=== PATIENT | female | born 1955 | race Caucasian/White ===

== ENCOUNTER 2016-07-09 16:11 | Emergency (ER) | payer MEDICARE, MEDICAID ==
[~2016-07-09] VITALS: Ht 152.4 cm; Wt 53.1 kg
[2016-07-09 16:42] VITALS: BP 112/71
== END 2016-07-09 17:31 | disposition home or self-care (01) ==
LOC: ER 16:20
DX: H00.036 Abscess of eyelid left eye, unspecified eyelid (principal); G35 Multiple sclerosis; Z88.1 Allergy status to other antibiotic agents
CPT/HCPCS: A4606; Z7610

== ENCOUNTER 2017-02-14 14:36 | Emergency (ER) | payer MEDICARE, MEDICAID ==
[~2017-02-14] VITALS: Ht 154.9 cm; Wt 49.9 kg
[2017-02-14 14:42] VITALS: BP 128/63
== END 2017-02-14 15:07 | disposition home or self-care (01) ==
LOC: ER 14:38
DX: S80.862A Insect bite (nonvenomous), left lower leg, initial encounter (principal); S80.861A Insect bite (nonvenomous), right lower leg, initial encounter; G35 Multiple sclerosis; Z88.1 Allergy status to other antibiotic agents; W57.XXXA Bitten or stung by nonvenomous insect and other nonvenomous arthropods, initial encounter; Y92.89 Other specified places as the place of occurrence of the external cause; Y93.89 Activity, other specified; Y99.8 Other external cause status
CPT/HCPCS: A4606; Z7610

== ENCOUNTER 2017-02-19 15:29 | Emergency (ER) | payer MEDICARE, MEDICAID ==
[~2017-02-19] VITALS: Ht 154.9 cm; Wt 49.9 kg
[2017-02-19 15:29] VITALS: BP 135/61
== END 2017-02-19 16:47 | disposition home or self-care (01) ==
LOC: ER 15:30
DX: L30.9 Dermatitis, unspecified (principal); G35 Multiple sclerosis; Z88.1 Allergy status to other antibiotic agents
CPT/HCPCS: 99283; A4606; Z7610

== ENCOUNTER 2017-05-04 16:05 | Emergency (ER) | payer MEDICARE, MEDICAID ==
[~2017-05-04] VITALS: Ht 154.9 cm; Wt 49.9 kg
--- NOTE | 2017-05-04 16:15 | NUR ---
PT AMBULATORY TO ER BED 05. WAS SENT BY PMD TO R/O UTI. C/O HEAVY SENSATION IN THE BLADDER, DISCOMFORT. NO OTHER COMPLAINTS. GOWNED AND PLACED ON MONITOR. NAD NOTED. AWAITING MD HERNANDEZ.
--- NOTE | 2017-05-04 16:48 | NUR ---
DR COYLE AT BEDSIDE FOR EVAL.
[2017-05-04 16:56] LABS: APPEARANCE,URINE Clear (CLEAR); BILIRUBIN,URINE Negative (NEGATIVE); BLOOD, URINE Trace-lysed Ery/uL (NEGATIVE); COLOR,URINE Yellow (YELLOW); KETONES,URINE Negative (NEGATIVE); LEUKOCYTE ESTERASE ,URINE Moderate (NEGATIVE); NITRITE, URINE Negative (NEGATIVE); PROTEIN,URINE Negative (NEGATIVE); UGLUCOSE Negative (NEGATIVE); UROBILINOGEN,URINE 0.2 EU/dL (0.2)
[2017-05-04 17:11] LABS: BACTERIA,URINE Few /HPF (None Seen); RBC,URINE 0-2 /HPF (0-2); SQUAMOUS EPITHELIAL CELL,UR Rare /HPF (None Seen)
[2017-05-04 17:55] VITALS: BP 129/87
--- NOTE | 2017-05-04 17:55 | NUR ---
Patient discharged to home in stable condition. Written and verbal after care instructions given. Patient verbalizes understanding of instruction.
--- NOTE | 2017-05-04 17:56 | NUR ---
REPORT GIVEN TO PAULINA FOR CONTINUITY OF CARE IN [facility]
== END 2017-05-04 17:56 | disposition home or self-care (01) ==
LOC: ER 16:08
DX: N39.0 Urinary tract infection, site not specified (principal); G35 Multiple sclerosis; Z88.1 Allergy status to other antibiotic agents
CPT/HCPCS: 81001; 87077; 87086; 87186; 99284; A4606; 81000-TC; Z7610

== ENCOUNTER 2018-12-11 11:08 | Emergency (ER) | payer MEDICARE, MEDICAID ==
[~2018-12-11] VITALS: Ht 152.4 cm; Wt 49.9 kg
--- NOTE | 2018-12-11 11:20 | NUR ---
[id number] FRM HOME C/O N/V SINCE LAST NIGHT. STATES SHE'S HAD ABOUT 10 EPISODES OF VOMIT TODAY. DENIES PAIN AT THIS TIME. ALSO STATES SHE HAS REGULAR CONSTIPATION, WHICH SHE RECEIVES ENEMAS FOR, RELATED TO HER MS. PT IS AOX4, HYPERTENSIVE, RR EVEN AND UNLABORED ON RA. NO ACUTE DISTRESS NOTED. AWAITING MD HERNANDEZ.
--- NOTE | 2018-12-11 11:50 | NUR ---
DR CORTEZ AT BEDSIDE FOR EVAL.
[2018-12-11] MEDS ORDERED: FAMOTIDINE/PF INJ 20 MG/2 ML VIAL IV ONE ×2 (12:00→12:14)
[2018-12-11] MEDS ORDERED: IV NS 0.9% 1,000 ML BAG IV ONE (12:00)
[2018-12-11] MEDS ORDERED: ONDANSETRON HCL/PF 4 MG/2 ML VIAL IVP ONE (12:00)
[2018-12-11 12:09] LABS: BASOPHILS % (AUTO) 0.3 % (0.0-2.0); EOSINOPHILS % (AUTO) 1.1 % (0.0-6.0); HEMATOCRIT 38 % (33-45); HEMOGLOBIN 12.9 g/dL (11.5-14.8); LYMPHOCYTES % (AUTO) 15.5 % (20.0-44.0); MEAN CORPUSCULAR HGB CONC 34 g/dl (31.0-36.0); MEAN CORPUSCULAR VOLUME 105 fL (82-100); MONOCYTES # (AUTO) 0.3 /CMM (0.1-1.30); MONOCYTES % (AUTO) 5.1 % (2.0-12.0); NEUTROPHILS # (AUTO) 5.2 /CMM (1.8-8.9); PLATELET COUNT (AUTO) 338 /CMM (150-450); RED BLOOD CELL COUNT(AUTO) 3.59 MIL/uL (4.0-5.2); WHITE BLOOD COUNT (AUTO) 6.7 K/uL (4.3-11.0)
[2018-12-11] MEDS ORDERED: ONDANSETRON HCL/PF 4 MG/2 ML VIAL ONE (12:14)
[2018-12-11 12:15] LABS: CALCIUM, SERUM 8.5 mg/dL (8.5-10.1); CREATININE 0.5 mg/dL (0.6-1.3); POTASSIUM 4.6 mmol/L (3.5-5.1)
--- NOTE | 2018-12-11 12:15 | NUR ---
[employer] AT BEDSIDE
[2018-12-11 12:33] LABS: ALBUMIN 3.8 g/dL (3.4-5.0); BILIRUBIN,DIRECT 0.1 mg/dL (0.0-0.2); BILIRUBIN,TOTAL 0.3 mg/dL (0.2-1.0); TOTAL PROTEIN, SERUM 7.6 g/dL (6.4-8.2)
--- NOTE | 2018-12-11 13:16 | NUR ---
Patient is resting comfortably in bed with eyes closed. Easily aroused. VSS
--- NOTE | 2018-12-11 14:13 | NUR ---
IV removed. Catheter intact and site benign. Pressure and 4x4 applied to site. No bleeding noted.Patient discharged to home in stable condition. Written and verbal after care instructions given. Patient verbalizes understanding of instruction.
[2018-12-11 14:14] VITALS: BP 181/85
== END 2018-12-11 14:14 | disposition home or self-care (01) ==
LOC: ER 11:10
DX: R10.13 Epigastric pain (principal); R11.2 Nausea with vomiting, unspecified; G35 Multiple sclerosis; F10.10 Alcohol abuse, uncomplicated; Y90.9 Presence of alcohol in blood, level not specified; Z88.1 Allergy status to other antibiotic agents
CPT/HCPCS: 36415; 71045; 76700; 80048; 80076; 83690; 84484; 85025; 96361; 96374; 96375; 99284; J2405; J3490; J7030

== ENCOUNTER 2019-01-17 12:43 | Emergency (ER) | payer MEDICARE, MEDICAID ==
[~2019-01-17] VITALS: Ht 154.9 cm; Wt 49.0 kg
[2019-01-17 13:17] VITALS: BP 139/97
--- NOTE | 2019-01-17 14:01 | NUR ---
Patient discharged to home in stable condition. Written and verbal after care instructions given. Patient verbalizes understanding of instruction.
== END 2019-01-17 14:02 | disposition home or self-care (01) ==
LOC: ER 12:45
DX: H57.89 Other specified disorders of eye and adnexa (principal); G35 Multiple sclerosis; Z88.1 Allergy status to other antibiotic agents

== ENCOUNTER 2019-01-26 14:59 | Emergency (ER) | payer MEDICARE, MEDICAID ==
[~2019-01-26] VITALS: Ht 154.9 cm; Wt 47.6 kg
[2019-01-26 15:21] LABS: APPEARANCE,URINE Slightly Cloudy (CLEAR); BILIRUBIN,URINE Negative (NEGATIVE); BLOOD, URINE Negative Ery/uL (NEGATIVE); COLOR,URINE Light yellow (YELLOW); KETONES,URINE Negative (NEGATIVE); LEUKOCYTE ESTERASE ,URINE Small (NEGATIVE); NITRITE, URINE Negative (NEGATIVE); PH,URINE 7.5 (5.0-8.0); PROTEIN,URINE Negative (NEGATIVE); UGLUCOSE Negative (NEGATIVE); UROBILINOGEN,URINE 0.2 EU/dL (0.2)
[2019-01-26 15:25] LABS: BACTERIA,URINE Few /HPF (None Seen); RBC,URINE 0-3 /HPF (0-2); SQUAMOUS EPITHELIAL CELL,UR Moderate /HPF (None Seen); WBC,URINE 20-50 /HPF (0-3)
[2019-01-26 15:37] LABS: BASOPHILS % (AUTO) 0.5 % (0.0-2.0); EOSINOPHILS % (AUTO) 2.8 % (0.0-6.0); HEMATOCRIT 35 % (33-45); HEMOGLOBIN 12.1 g/dL (11.5-14.8); LYMPHOCYTES # (AUTO) 2.1 /CMM (0.8-4.8); LYMPHOCYTES % (AUTO) 30.4 % (20.0-44.0); MEAN CORPUSCULAR HGB CONC 35 g/dl (31.0-36.0); MEAN CORPUSCULAR VOLUME 103 fL (82-100); MONOCYTES # (AUTO) 0.4 /CMM (0.1-1.30); MONOCYTES % (AUTO) 5.3 % (2.0-12.0); NEUTROPHILS # (AUTO) 4.2 /CMM (1.8-8.9); PLATELET COUNT (AUTO) 323 /CMM (150-450); WHITE BLOOD COUNT (AUTO) 6.9 K/uL (4.3-11.0)
[2019-01-26 15:47] LABS: CALCIUM, SERUM 8.9 mg/dL (8.5-10.1); CREATININE 0.6 mg/dL (0.6-1.3); POTASSIUM 3.5 mmol/L (3.5-5.1)
[2019-01-26 15:58] LABS: ALBUMIN 4.1 g/dL (3.4-5.0); BILIRUBIN,DIRECT 0.1 mg/dL (0.0-0.2); BILIRUBIN,TOTAL 0.2 mg/dL (0.2-1.0); TOTAL PROTEIN, SERUM 7.7 g/dL (6.4-8.2)
[2019-01-26 16:16] LABS: EOSINOPHILS % (MANUAL) 4 % (0-4); LYMPHOCYTES % (MANUAL) 31 % (16-48); MONOCYTES % (MANUAL) 2 % (0-11.0); NEUTROPHILS % (MANUAL) 63 (42-76)
[2019-01-26 16:25] VITALS: BP 133/70
== END 2019-01-26 16:26 | disposition home or self-care (01) ==
LOC: ER 15:02
DX: N39.0 Urinary tract infection, site not specified (principal); G35 Multiple sclerosis; Z88.1 Allergy status to other antibiotic agents
CPT/HCPCS: 36415; 76705-TC; 80048-TC; 80076-TC; 81000-TC; 83690-TC; 85025-TC; 87086-TC

== ENCOUNTER 2019-10-20 16:35 | Emergency (ER) | payer MEDICARE, OTHER ==
[~2019-10-20] VITALS: Ht 154.9 cm; Wt 68.0 kg
--- NOTE | 2019-10-20 16:39 | NUR ---
CALLED TO TRIAGE,PATIENT IN RESTROOM
--- NOTE | 2019-10-20 17:00 | NUR ---
NAUSEA AND VOMITING SINCE LAST NIGHT ON MACROBID FOR UTI X 3 DAYS. PATIENT A/OX4. BREATHING EVEN AND UNLABORED, NO SOB NOTED, NEEDS ATTENDED, KEPT COMFORTABLE. WILL CONTINUE TO MONITOR.
[2019-10-20] MEDS ORDERED: ONDANSETRON HCL/PF 4 MG/2 ML VIAL ONE (17:26)
[2019-10-20] MEDS ORDERED: ONDANSETRON HCL/PF 4 MG/2 ML VIAL IVP ONE (17:30)
[2019-10-20] MEDS ORDERED: IV NS 0.9% 500 ML BAG IV ONE (17:30)
[2019-10-20] MEDS ORDERED: IV NS 0.9% 1,000 ML BAG IV ONE (17:30)
[2019-10-20 17:45] LABS: BASOPHILS % (AUTO) 0.4 % (0.0-2.0); EOSINOPHILS % (AUTO) 2.1 % (0.0-6.0); HEMATOCRIT 36 % (33-45); HEMOGLOBIN 12.2 g/dL (11.5-14.8); LYMPHOCYTES # (AUTO) 1.5 /CMM (0.8-4.8); LYMPHOCYTES % (AUTO) 19.5 % (20.0-44.0); MEAN CORPUSCULAR HGB CONC 34 g/dl (31.0-36.0); MEAN CORPUSCULAR VOLUME 103 fL (82-100); MONOCYTES # (AUTO) 0.4 /CMM (0.1-1.30); MONOCYTES % (AUTO) 5.9 % (2.0-12.0); NEUTROPHILS # (AUTO) 5.4 /CMM (1.8-8.9); NEUTROPHILS % (AUTO) 72.1 % (43.0-81.0); PLATELET COUNT (AUTO) 331 /CMM (150-450); WHITE BLOOD COUNT (AUTO) 7.5 K/uL (4.3-11.0)
[2019-10-20 17:59] LABS: ALBUMIN 4.4 g/dL (3.4-5.0); BILIRUBIN,DIRECT 0.1 mg/dL (0.0-0.2); BILIRUBIN,TOTAL 0.4 mg/dL (0.2-1.0); CALCIUM, SERUM 10.1 mg/dL (8.5-10.1); CREATININE 0.8 mg/dL (0.6-1.3); POTASSIUM 3.3 mmol/L (3.5-5.1); TOTAL PROTEIN, SERUM 8.1 g/dL (6.4-8.2)
[2019-10-20 18:54] LABS: APPEARANCE,URINE Clear (CLEAR); BILIRUBIN,URINE Negative (NEGATIVE); BLOOD, URINE Negative Ery/uL (NEGATIVE); COLOR,URINE Yellow (YELLOW); KETONES,URINE Trace (NEGATIVE); LEUKOCYTE ESTERASE ,URINE Trace (NEGATIVE); NITRITE, URINE Negative (NEGATIVE); PH,URINE 8.5 (5.0-8.0); PROTEIN,URINE Negative (NEGATIVE); UGLUCOSE Negative (NEGATIVE); UROBILINOGEN,URINE 0.2 EU/dL (0.2)
[2019-10-20] MEDS ORDERED: POTASSIUM CHLORIDE 20 MEQ TAB.PRT.SR PO ONE ×2 (19:00→19:18)
[2019-10-20 19:16] LABS: BACTERIA,URINE 1+ /HPF (None Seen); SQUAMOUS EPITHELIAL CELL,UR Few /HPF (None Seen)
--- NOTE | 2019-10-20 19:20 | NUR ---
Patient a/ox4, breathing even and unlabored, no sob noted, needs attended. Kept comfortable. IV removed. Catheter intact and site benign. Pressure and 4x4 applied to site. No bleeding noted.Patient discharged to home in stable condition. Written and verbal after care instructions given. Patient verbalizes understanding of instruction.
[2019-10-20 19:23] VITALS: BP 160/90
== END 2019-10-20 19:24 | disposition home or self-care (01) ==
LOC: ER 16:38
DX: R11.2 Nausea with vomiting, unspecified (principal); E86.0 Dehydration; E87.6 Hypokalemia; G35 Multiple sclerosis; Z88.8 Allergy status to other drugs, medicaments and biological substances
CPT/HCPCS: 36415; 80048; 80076; 81001; 83690; 85025; 87086; 96374; 99283; J2405; J7040; 81000-TC

== ENCOUNTER 2019-12-30 10:13 | Outpatient (CLI) | payer MEDICARE, OTHER ==
[2019-12-30 13:08] LABS: BASOPHILS % (AUTO) 0.4 % (0.0-2.0); HEMATOCRIT 34 % (33-45); HEMOGLOBIN 11.1 g/dL (11.5-14.8); LYMPHOCYTES # (AUTO) 1.5 /CMM (0.8-4.8); LYMPHOCYTES % (AUTO) 19.5 % (20.0-44.0); MEAN CORPUSCULAR HGB CONC 33 g/dl (31.0-36.0); MEAN CORPUSCULAR VOLUME 104 fL (82-100); MONOCYTES # (AUTO) 0.4 /CMM (0.1-1.30); MONOCYTES % (AUTO) 4.6 % (2.0-12.0); NEUTROPHILS # (AUTO) 5.5 /CMM (1.8-8.9); NEUTROPHILS % (AUTO) 71.5 % (43.0-81.0); PLATELET COUNT (AUTO) 426 /CMM (150-450); RED BLOOD CELL COUNT(AUTO) 3.21 MIL/uL (4.0-5.2); WHITE BLOOD COUNT (AUTO) 7.8 K/uL (4.3-11.0)
[2019-12-30 13:32] LABS: THYROID STIMULATING HORMONE 2.131 uIU/mL (0.358-3.74)
[2019-12-30 13:38] LABS: ALBUMIN 3.9 g/dL (3.4-5.0); BILIRUBIN,TOTAL 0.2 mg/dL (0.2-1.0); CALCIUM, SERUM 9.4 mg/dL (8.5-10.1); CREATININE 0.7 mg/dL (0.6-1.3); MAGNESIUM 2.3 mg/dL (1.8-2.4); PHOSPHORUS 5.1 mg/dL (2.5-4.9); POTASSIUM 4.4 mmol/L (3.5-5.1); TOTAL PROTEIN, SERUM 7.6 g/dL (6.4-8.2)
== END 2019-12-30 23:59 | disposition home or self-care (01) ==
LOC: MSC 10:13
PROVIDERS: ATTEND Internal Medicine
DX: R10.9 Unspecified abdominal pain (principal); M25.561 Pain in right knee; I10 Essential (primary) hypertension; G47.00 Insomnia, unspecified; F32.9 Major depressive disorder, single episode, unspecified; R23.2 Flushing; E87.6 Hypokalemia; J44.9 Chronic obstructive pulmonary disease, unspecified; R32 Unspecified urinary incontinence; G35 Multiple sclerosis; R53.83 Other fatigue; D64.9 Anemia, unspecified; E55.9 Vitamin D deficiency, unspecified; Z79.899 Other long term (current) drug therapy
CPT/HCPCS: 36415; 80053; 83735; 84100; 84443; 85025; G0463

== ENCOUNTER 2020-01-08 14:55 | Outpatient (CLI) | payer MEDICARE, OTHER | END 2020-01-08 23:59 | disposition home or self-care (01) | LOC: MSC 14:55 | PROVIDERS: ATTEND Internal Medicine | DX: M54.5 Low back pain (principal); R53.83 Other fatigue; R32 Unspecified urinary incontinence; G47.00 Insomnia, unspecified; F32.9 Major depressive disorder, single episode, unspecified; R23.2 Flushing; E87.6 Hypokalemia; J44.9 Chronic obstructive pulmonary disease, unspecified; D64.9 Anemia, unspecified; E55.9 Vitamin D deficiency, unspecified; G35 Multiple sclerosis; Z79.1 Long term (current) use of non-steroidal anti-inflammatories (NSAID); Z79.891 Long term (current) use of opiate analgesic; Z79.51 Long term (current) use of inhaled steroids; Z79.899 Other long term (current) drug therapy ==

== ENCOUNTER 2020-01-12 10:12 | Outpatient (CLI) | payer MEDICARE, OTHER | END 2020-01-12 23:59 | disposition home or self-care (01) | LOC: US 10:12 | PROVIDERS: ATTEND Internal Medicine | DX: M25.562 Pain in left knee (principal); R10.9 Unspecified abdominal pain | CPT/HCPCS: 73564-TC; 76700-TC ==

== ENCOUNTER 2020-02-01 13:02 | Outpatient (CLI) | payer MEDICARE, OTHER | END 2020-02-01 23:59 | disposition home or self-care (01) | LOC: MSC 13:02 | PROVIDERS: ATTEND Internal Medicine | DX: M54.5 Low back pain (principal); G47.00 Insomnia, unspecified; F32.9 Major depressive disorder, single episode, unspecified; R23.2 Flushing; J44.9 Chronic obstructive pulmonary disease, unspecified; R32 Unspecified urinary incontinence; G35 Multiple sclerosis; E55.9 Vitamin D deficiency, unspecified; Z79.899 Other long term (current) drug therapy ==

== ENCOUNTER 2020-02-05 17:56 | Emergency (ER) | payer MEDICARE, OTHER ==
[~2020-02-05] VITALS: Ht 152.4 cm; Wt 49.0 kg
[2020-02-05 18:04] VITALS: BP 139/72
[2020-02-05] MEDS ORDERED: FAMOTIDINE (20 MG) 20 MG TABLET PO ONE (18:30)
[2020-02-05] MEDS ORDERED: predniSONE 50 MG TABLET PO ONE (18:30)
[2020-02-05] MEDS ORDERED: diphenhydrAMINE HCL 25 MG CAPSULE PO ONE (18:30)
[2020-02-05] MEDS ORDERED: diphenhydrAMINE HCL 25 MG CAPSULE ONE (18:32)
[2020-02-05] MEDS ORDERED: FAMOTIDINE (20 MG) 20 MG TABLET ONE (18:32)
[2020-02-05] MEDS ORDERED: predniSONE 10 MG TABLET ONE (18:33)
[2020-02-05] MEDS ORDERED: predniSONE 20 MG TABLET ONE (18:33)
== END 2020-02-05 18:39 | disposition home or self-care (01) ==
LOC: ER 17:59
DX: L50.8 Other urticaria (principal); G35 Multiple sclerosis; Z88.1 Allergy status to other antibiotic agents
CPT/HCPCS: 99284; J7512 ×2; Q0163

== ENCOUNTER 2020-02-22 13:39 | Outpatient (CLI) | payer MEDICARE, MEDICAID | END 2020-02-22 23:59 | disposition home or self-care (01) | LOC: MSC 13:39 | PROVIDERS: ATTEND Internal Medicine | DX: L25.9 Unspecified contact dermatitis, unspecified cause (principal); M54.5 Low back pain; I10 Essential (primary) hypertension; J44.9 Chronic obstructive pulmonary disease, unspecified; G47.00 Insomnia, unspecified; N39.46 Mixed incontinence; F32.2 Major depressive disorder, single episode, severe without psychotic features; G35 Multiple sclerosis; E55.9 Vitamin D deficiency, unspecified; R53.83 Other fatigue; Z79.899 Other long term (current) drug therapy; Z79.1 Long term (current) use of non-steroidal anti-inflammatories (NSAID) ==

== ENCOUNTER 2020-03-08 23:26 | Emergency (ER) | payer MEDICARE, OTHER ==
[~2020-03-08] VITALS: Ht 152.4 cm; Wt 48.5 kg
[2020-03-08 23:48] LABS: BASOPHILS % (AUTO) 0.5 % (0.0-2.0); EOSINOPHILS % (AUTO) 1.7 % (0.0-6.0); HEMATOCRIT 33 % (33-45); HEMOGLOBIN 11.3 g/dL (11.5-14.8); LYMPHOCYTES # (AUTO) 1.7 /CMM (0.8-4.8); LYMPHOCYTES % (AUTO) 22.4 % (20.0-44.0); MEAN CORPUSCULAR HGB CONC 35 g/dl (31.0-36.0); MEAN CORPUSCULAR VOLUME 101 fL (82-100); MONOCYTES # (AUTO) 0.5 /CMM (0.1-1.30); MONOCYTES % (AUTO) 6.3 % (2.0-12.0); NEUTROPHILS # (AUTO) 5.2 /CMM (1.8-8.9); NEUTROPHILS % (AUTO) 69.1 % (43.0-81.0); PLATELET COUNT (AUTO) 306 /CMM (150-450); RED BLOOD CELL COUNT(AUTO) 3.25 MIL/uL (4.0-5.2); WHITE BLOOD COUNT (AUTO) 7.5 K/uL (4.3-11.0)
[2020-03-09 00:03] LABS: CREATININE 0.6 mg/dL (0.6-1.3); POTASSIUM 3.4 mmol/L (3.5-5.1)
[2020-03-09 00:15] LABS: ALBUMIN 3.8 g/dL (3.4-5.0); BILIRUBIN,DIRECT 0.1 mg/dL (0.0-0.2); BILIRUBIN,TOTAL 0.4 mg/dL (0.2-1.0); TOTAL PROTEIN, SERUM 7.3 g/dL (6.4-8.2)
[2020-03-09] MEDS ORDERED: MORPHINE SULFATE INJ 4 MG/ML DISP.SYRIN ONE (00:49)
[2020-03-09] MEDS ORDERED: ONDANSETRON HCL/PF 4 MG/2 ML VIAL ONE (00:49)
[2020-03-09] MEDS ORDERED: DIPH-530 PO (01:00)
[2020-03-09] MEDS ORDERED: ONDANSETRON HCL/PF - ER 4 MG/2 ML VIAL IV ONE (01:00)
[2020-03-09] MEDS ORDERED: MORPHINE SULFATE INJ 2 MG/ML DISP.SYRIN IV ONE (01:00)
--- NOTE | 2020-03-09 01:22 | NUR ---
DR MARTINEZ PAGED PER DR LOPEZ
--- NOTE | 2020-03-09 01:47 | NUR ---
lab called regarding negative covid result.
--- NOTE | 2020-03-09 02:14 | NUR ---
112-2 [facility] hospital bed
--- NOTE | 2020-03-09 02:27 | NUR ---
Patient does not wish to proceed with medical care recommended by Dr. Alva. Patient given information related to possible complications, up to and including , which could occur as a result of leaving the hospital at this time. Patient verbalizes understanding of risks involved due to leaving against medical advice. Patient has signed AMA form. IV removed. Catheter intact and site benign. Pressure and 4x4 applied to site. No bleeding noted. pt ambulated in steady gate and left the hospital.
[2020-03-09 02:34] VITALS: BP 172/79
== END 2020-03-09 02:35 | disposition left against medical advice (07) ==
LOC: ER 23:30 → UNDOADMIN 03-09 02:17 → TELE1 03-09 02:17
DX: R07.9 Chest pain, unspecified (principal); Z20.828 Contact with and (suspected) exposure to other viral communicable diseases; G35 Multiple sclerosis; Z88.1 Allergy status to other antibiotic agents; R94.31 Abnormal electrocardiogram [ECG] [EKG]
CPT/HCPCS: 36415; 71045; 80048; 80076; 83880; 84484; 85025; 85730; 87426; 93005; 96374; 96375; 99285; J2270; J2405; C9803

== ENCOUNTER 2020-05-22 16:45 | Emergency (ER) | payer MEDICARE, OTHER ==
[~2020-05-22] VITALS: Ht 154.9 cm; Wt 49.0 kg
[~2020-05-22 16:45] MED LIST: DIPH-530 PO
--- NOTE | 2020-05-22 17:10 | NUR ---
BIB SELF C/O VAGINAL BLEEDING WITH ABD PAIN X 2 DAYS -N/V/D. VS CHECKED. STABLE
--- NOTE | 2020-05-22 19:27 | NUR ---
us in process at bed side
[2020-05-22 19:44] LABS: BASOPHILS # (AUTO) 0.1 /CMM (0.0-0.2); BASOPHILS % (AUTO) 0.7 % (0.0-2.0); EOSINOPHILS % (AUTO) 2.5 % (0.0-6.0); HEMATOCRIT 37 % (33-45); LYMPHOCYTES # (AUTO) 1.7 /CMM (0.8-4.8); LYMPHOCYTES % (AUTO) 19.3 % (20.0-44.0); MEAN CORPUSCULAR HGB CONC 33 g/dl (31.0-36.0); MEAN CORPUSCULAR VOLUME 104 fL (82-100); MONOCYTES # (AUTO) 0.5 /CMM (0.1-1.30); MONOCYTES % (AUTO) 5.8 % (2.0-12.0); NEUTROPHILS # (AUTO) 6.2 /CMM (1.8-8.9); NEUTROPHILS % (AUTO) 71.7 % (43.0-81.0); PLATELET COUNT (AUTO) 310 /CMM (150-450); RED BLOOD CELL COUNT(AUTO) 3.51 MIL/uL (4.0-5.2); WHITE BLOOD COUNT (AUTO) 8.6 K/uL (4.3-11.0)
[2020-05-22 19:50] LABS: CREATININE 0.6 mg/dL (0.6-1.3); POTASSIUM 4.3 mmol/L (3.5-5.1)
[2020-05-22 20:00] LABS: ALBUMIN 3.9 g/dL (3.4-5.0); BILIRUBIN,DIRECT 0.1 mg/dL (0.0-0.2); BILIRUBIN,TOTAL 0.3 mg/dL (0.2-1.0); TOTAL PROTEIN, SERUM 7.8 g/dL (6.4-8.2)
[2020-05-22 20:03] LABS: BILIRUBIN,URINE NEGATIVE (NEGATIVE); BLOOD, URINE NEGATIVE Ery/uL (NEGATIVE); COLOR,URINE YELLOW (YELLOW); LEUKOCYTE ESTERASE ,URINE TRACE (NEGATIVE); NITRITE, URINE NEGATIVE (NEGATIVE); PROTEIN,URINE NEGATIVE (NEGATIVE); UGLUCOSE NEGATIVE (NEGATIVE); UROBILINOGEN,URINE 0.2 EU/dL (0.2)
[2020-05-22 20:16] LABS: BACTERIA,URINE Few /HPF (None Seen); RBC,URINE 0-2 /HPF (0-2); SQUAMOUS EPITHELIAL CELL,UR Rare /HPF (None Seen); WBC,URINE 0-2 /HPF (0-3)
[2020-05-22] MEDS ORDERED: IBUPROFEN 400 MG TABLET ONE (20:37)
[2020-05-22 20:44] VITALS: BP 125/72
[2020-05-22] MEDS ORDERED: IBUPROFEN 400 MG TABLET PO ONE (21:00)
== END 2020-05-22 20:44 | disposition home or self-care (01) ==
LOC: ER 16:48
DX: N93.9 Abnormal uterine and vaginal bleeding, unspecified (principal); G35 Multiple sclerosis; Z88.1 Allergy status to other antibiotic agents; Z88.8 Allergy status to other drugs, medicaments and biological substances
CPT/HCPCS: 36415; 76856; 80048; 80076; 81001; 83690; 85025; 99284; A6403

== ENCOUNTER 2020-07-25 12:52 | Outpatient (CLI) | payer MEDICARE, OTHER | END 2020-07-25 23:59 | disposition home or self-care (01) | LOC: MSC 12:52 | PROVIDERS: ATTEND Internal Medicine | DX: K59.00 Constipation, unspecified (principal); M54.5 Low back pain; N93.9 Abnormal uterine and vaginal bleeding, unspecified; J30.1 Allergic rhinitis due to pollen; I10 Essential (primary) hypertension; L25.9 Unspecified contact dermatitis, unspecified cause; J44.9 Chronic obstructive pulmonary disease, unspecified; Z79.51 Long term (current) use of inhaled steroids; G47.00 Insomnia, unspecified; N39.46 Mixed incontinence; F32.2 Major depressive disorder, single episode, severe without psychotic features; E55.9 Vitamin D deficiency, unspecified; G35 Multiple sclerosis; R53.83 Other fatigue; Z79.899 Other long term (current) drug therapy ==

== ENCOUNTER → 2020-07-26 | Outpatient (CLI) | payer MEDICARE, OTHER | END | disposition home or self-care (01) | LOC: MSC 11:00 | PROVIDERS: ATTEND Anesthesiology | DX: G35 Multiple sclerosis (principal); M54.5 Low back pain; M62.830 Muscle spasm of back; M40.299 Other kyphosis, site unspecified; M79.2 Neuralgia and neuritis, unspecified; G82.20 Paraplegia, unspecified; F41.8 Other specified anxiety disorders ==

== ENCOUNTER 2020-08-16 12:02 | Outpatient (CLI) | payer MEDICARE, OTHER | END 2020-08-16 23:59 | disposition home or self-care (01) | LOC: RAD 12:02 | PROVIDERS: ATTEND Internal Medicine | DX: M47.817 Spondylosis without myelopathy or radiculopathy, lumbosacral region (principal); M51.27 Other intervertebral disc displacement, lumbosacral region; M48.07 Spinal stenosis, lumbosacral region; M43.16 Spondylolisthesis, lumbar region; M47.813 Spondylosis without myelopathy or radiculopathy, cervicothoracic region; M50.21 Other cervical disc displacement, high cervical region; M48.02 Spinal stenosis, cervical region; M41.86 Other forms of scoliosis, lumbar region | CPT/HCPCS: 72141-TC; 72146-TC; 72148-TC ==

== ENCOUNTER 2020-08-26 23:08 | Inpatient (IN) | payer MEDICARE, OTHER ==
[~2020-08-26] VITALS: Ht 152.4 cm; Wt 49.9 kg
--- NOTE | 2020-08-26 23:15 | NUR ---
Note undone in EDM - 08/27/20 at 0146 by VIDA Pt bibRA from home c/o midsternal pain x20 min with nausea. Pt aaox4 breathing evenly and unlabored. Pt skin warm, dry, and intact. Pt states " i think the pain is from stress". pt attached to monitor and pox. Emt at bedside for ekg. Left ac 20g initiated. Blood obtained and sent to lab. Pt given blanket and call light within reach. Will continue to monitor.
--- NOTE | 2020-08-26 23:15 | NUR ---
Pt bibRA from home c/o midsternal pain x20 min with nausea. Pt aaox4 breathing evenly and unlabored. Pt skin warm, dry, and intact. Pt states " i think the pain is from stress". pt attached to monitor and pox. Emt at bedside for ekg. Left ac 20g initiated. Pt given blanket and call light within reach. Will continue to monitor.
[2020-08-26] MEDS ORDERED: ASPIRIN 325 MG TABLET ONE (23:18)
[2020-08-26] MEDS ORDERED: ASPIRIN 325 MG TABLET PO ONE (23:30)
[2020-08-26] MEDS: LORAZEPAM INJ 2 MG/ML VIAL IV ONE ×2 (23:30)
[2020-08-26] MEDS ORDERED: ONDANSETRON HCL/PF 4 MG/2 ML VIAL IV ONE (23:30)
--- NOTE | 2020-08-26 23:40 | NUR ---
blood obtained and sent to lab
--- NOTE | 2020-08-26 23:44 | NUR ---
xray at bedside
[2020-08-27] MEDS ORDERED: LIDOCAINE VISCOUS 2% UD 15 ML UDC MM ONE
[2020-08-27] MEDS ORDERED: MAG HYDROX/AL HYDROX/SIMETH 30 ML UDC PO ONE
[2020-08-27 00:03] LABS: EOSINOPHILS % (AUTO) 3.7 % (0.0-6.0); HEMATOCRIT 37 % (33-45); HEMOGLOBIN 12.1 g/dL (11.5-14.8); LYMPHOCYTES # (AUTO) 1.9 /CMM (0.8-4.8); LYMPHOCYTES % (AUTO) 39.8 % (20.0-44.0); MEAN CORPUSCULAR HGB CONC 33 g/dl (31.0-36.0); MEAN CORPUSCULAR VOLUME 101 fL (82-100); MONOCYTES # (AUTO) 0.3 /CMM (0.1-1.30); MONOCYTES % (AUTO) 6.8 % (2.0-12.0); NEUTROPHILS # (AUTO) 2.3 /CMM (1.8-8.9); NEUTROPHILS % (AUTO) 48.7 % (43.0-81.0); PLATELET COUNT (AUTO) 318 /CMM (150-450); RED BLOOD CELL COUNT(AUTO) 3.62 MIL/uL (4.0-5.2); WHITE BLOOD COUNT (AUTO) 4.8 K/uL (4.3-11.0)
[2020-08-27] MEDS ORDERED: LIDOCAINE VISCOUS 2% UD 15 ML UDC ONE (00:08)
[2020-08-27] MEDS ORDERED: ONDANSETRON HCL/PF 4 MG/2 ML VIAL ONE (00:09)
[2020-08-27] MEDS ORDERED: MAG HYDROX/AL HYDROX/SIMETH 30 ML UDC ONE (00:09)
[2020-08-27] MEDS ORDERED: LORAZEPAM INJ 2 MG/ML VIAL ONE (00:09)
[2020-08-27 00:12] LABS: CALCIUM, SERUM 9.2 mg/dL (8.5-10.1); CREATININE 0.7 mg/dL (0.6-1.3); POTASSIUM 3.3 mmol/L (3.5-5.1)
--- NOTE | 2020-08-27 00:22 | NUR ---
covid swab sent to lab
[2020-08-27] MEDS ORDERED: POTASSIUM CHLORIDE 20 MEQ TAB.PRT.SR PO ONE ×2 (00:30→00:50)
[2020-08-27] MEDS ORDERED: MAGNESIUM HYDROXIDE 30 ML UDC PO PRN (01:00)
[2020-08-27] MEDS ORDERED: MORPHINE SULFATE INJ 2 MG/ML DISP.SYRIN IV PRN (01:00)
[2020-08-27] MEDS ORDERED: HYDROCODONE/APAP 5/325MG TABLET PO PRN (01:00)
[2020-08-27] MEDS ORDERED: ONDANSETRON HCL/PF 4 MG/2 ML VIAL IVP PRN (01:00)
[2020-08-27] MEDS ORDERED: NITROGLYCERIN 0.4 MG/TAB BOTTLE SL PRN (01:00)
[2020-08-27] MEDS ORDERED: ZOLPIDEM TARTRATE 5 MG TABLET PO PRN (01:00)
[2020-08-27] MEDS ORDERED: MAG HYDROX/AL HYDROX/SIMETH 30 ML UDC PO PRN (01:00)
[2020-08-27] MEDS ORDERED: ACETAMINOPHEN 325 MG TABLET PO PRN (01:00)
[2020-08-27] MEDS ORDERED: LORAZEPAM 1 MG TABLET PO PRN (01:00)
[2020-08-27] MEDS ORDERED: Z GUARD REMEDY 2 OZ OINT TP PRN (01:00)
--- NOTE | 2020-08-27 02:43 | NUR ---
report given to yen Bueno for ida
--- NOTE | 2020-08-27 03:35 | NUR ---
RN NOTES PT ARRIVED TO UNIT VIA GURNEY. PT WAS ABLE TO WAK FROM GURNEY TO BED WITHOUT ASSISTANCE.PT IS ALERT AND ORIENTED X4. PT REPORTS NO CHEST PAIN OR DISCOMFORT AT THIS TIME. NO RESPIRATORY DISTRESS NOTED OR REPORTED PT ON ROOM AIR TOLERATING WELL. PT PLACED ON TELE MONITOR WITH SR 69. PT SKIN ASSESSMENT DONE NO BRUSING OR DISCOLORATION NOTED OR REPORTED NO EDEMA PRESENT AT THIS TIME. ABDOMEN IS SOFT NON TENDER NON DISTENDED. BOWEL SOUNDS ARE PRESENT IN ALL 4 QUADRANTS. LUNG SOUNDS ARE CLEAR UPON AUSCULTATION BILATERALLY. PUPILS EQUAL ROUND AND REACTIVE TO LIGHT AND ACCOMMODATION. PT CALL LIGHT WITHIN REACH. SAFETY MEASURES FOLLOWED. PT ORIENTED TO ROOM AND UNIT. ALL NURSING NEEDS MET AT THIS TIME WILL CONTINUE TO MONITOR.
[2020-08-27 04:07] VITALS: BP 147/70
--- NOTE | 2020-08-27 07:15 | NUR ---
RN OPENING NOTES PATIENT RECEIVED IN BED RESTING IN SEMI-FOWLERS POSITION. PT REPORTS NO CHEST PAIN OR DISCOMFORT AT THIS TIME. NO RESPIRATORY DISTRESS NOTED OR REPORTED. PATIENT ON ROOM AIR TOLERATING WELL. LEFT AC #20 G INTACT AND PATENT. SAFETY PRECAUTIONS IMPLEMENTED, BED LOCKED IN LOWEST POSITION, SIDE RAILS UP X 2, CALL LIGHT WITHIN REACH. WILL CONTINUE TO MONITOR AND PROVIDE CARE THROUGHOUT SHIFT.
[2020-08-27] MEDS ORDERED: PANTOPRAZOLE 40 MG TABLET.DR PO SCH (07:30)
[2020-08-27 08:00] VITALS: BP 166/77
[2020-08-27] MEDS: POTASSIUM CHLORIDE 20 MEQ TAB.PRT.SR PO SCH ×2 (08:52→10:09)
[2020-08-27] MEDS ORDERED: ASPIRIN 81 MG TAB.CHEW PO SCH (09:00)
[2020-08-27] MEDS ORDERED: METOPROLOL TARTRATE INJ 5 MG/5 ML AMPUL ONE (10:17)
[2020-08-27] MEDS ORDERED: IOHEXOL-350 100 ML VIAL IV ONE (10:17)
[2020-08-27] MEDS ORDERED: IV NS 0.9% 250 ML IV ONE (10:18)
[2020-08-27] MEDS ORDERED: CT SWABBABLE VALVE TRANS SET 1 EA INFUS.SET MC ONE (10:18)
[2020-08-27 10:52] LABS: THYROID STIMULATING HORMONE 2.478 uIU/mL (0.358-3.74)
[2020-08-27] MEDS ORDERED: METOPROLOL TARTRATE INJ 5 MG/5 ML AMPUL IVP PRN (11:00)
[2020-08-27] MEDS ORDERED: NITROGLYCERIN 0.4 MG/TAB BOTTLE SL ONE (11:00)
--- NOTE | 2020-08-27 11:04 | NUR ---
CTA PROCEDURE WELL TOLERATED BY THE PT. PT IS AAOX4, V/S STABLE, KEPT RESTED AND COMFORTABLE. REPORT GIVEN TO IZZY PHILLIPS FOR BERTHA.
[2020-08-27 12:00] VITALS: BP 136/70
[2020-08-27 17:22] VITALS: BP 147/83
[2020-08-27] MEDS ORDERED: ALBU18HF2 INH (17:36)
--- NOTE | 2020-08-27 19:02 | NUR ---
RN CLOSING NOTES PATIENT IN BED RESTING IN SEMI-FOWLERS POSITION. PT REPORTS NO CHEST PAIN OR DISCOMFORT AT THIS TIME. NO RESPIRATORY DISTRESS NOTED OR REPORTED. PATIENT ON ROOM AIR TOLERATING WELL. SAFETY PRECAUTIONS IMPLEMENTED, BED LOCKED IN LOWEST POSITION, SIDE RAILS UP X 2, CALL LIGHT WITHIN REACH. DISCHARGE PAPERWORK AND INSTRUCTIONS WENT OVER WITH PATIENT. CURRENTLY AWAITING TRANSPORTATION. WILL ENDORSE CONTINUATION OF CARE TO UPCOMING SHIFT.
--- NOTE | 2020-08-27 20:00 | NUR ---
RN NOTES Received pt. awake on bed, a/ox3, waiting for the ambulance, not in distress, denies pain , call light within reach, siderailsupx2, continue to monitor
--- NOTE | 2020-08-27 20:40 | NUR ---
RN NOTES patient left via ambulance, V/S stable, denies pain
== END 2020-08-28 04:55 | disposition home or self-care (01) | DRG 392 ==
LOC: ER 23:11 → TELE 08-27 02:51 → MED 08-27 09:54
PROVIDERS: ADMIT Nurse Practitioner Acute Care; ATTEND Nurse Practitioner Acute Care
DX: K29.70 Gastritis, unspecified, without bleeding (principal); I24.9 Acute ischemic heart disease, unspecified; N17.9 Acute kidney failure, unspecified; Z20.822 Contact with and (suspected) exposure to COVID-19; G35 Multiple sclerosis; I10 Essential (primary) hypertension; F41.9 Anxiety disorder, unspecified; Z88.1 Allergy status to other antibiotic agents; Z87.891 Personal history of nicotine dependence; Z87.2 Personal history of diseases of the skin and subcutaneous tissue; R32 Unspecified urinary incontinence; E87.6 Hypokalemia
CPT/HCPCS: 36415; 71045-TC; 73630-TC; 75574; 80048-TC; 80061-TC; 84443-TC; 84484-TC; 85025-TC; 85378-TC; 85610-TC; 87081-TC; 93307-TC; C9803; G0378; J2060; J2405; J3490; J7050; Q9967

== ENCOUNTER 2020-08-30 11:00 | Outpatient (CLI) | payer MEDICARE, OTHER ==
[~2020-08-30 11:00] MED LIST changes: +ALBU18HF2 INH; -DIPH-530 PO
== END 2020-08-30 23:59 | disposition home or self-care (01) ==
LOC: MSC 11:00
PROVIDERS: ATTEND Anesthesiology
DX: M54.5 Low back pain (principal); G35 Multiple sclerosis; G82.20 Paraplegia, unspecified; M79.2 Neuralgia and neuritis, unspecified; M62.830 Muscle spasm of back; M40.299 Other kyphosis, site unspecified; S92.351D Displaced fracture of fifth metatarsal bone, right foot, subsequent encounter for fracture with routine healing; X58.XXXD Exposure to other specified factors, subsequent encounter; R32 Unspecified urinary incontinence; K59.00 Constipation, unspecified

== ENCOUNTER 2020-08-31 10:53 | Outpatient (CLI) | payer MEDICARE, OTHER | END 2020-08-31 23:59 | disposition home or self-care (01) | LOC: MSC 10:53 | PROVIDERS: ATTEND Internal Medicine | DX: Z51.89 Encounter for other specified aftercare (principal); K59.00 Constipation, unspecified; G35 Multiple sclerosis; M54.5 Low back pain; J30.1 Allergic rhinitis due to pollen; J44.9 Chronic obstructive pulmonary disease, unspecified; G47.00 Insomnia, unspecified; F32.2 Major depressive disorder, single episode, severe without psychotic features; Z79.899 Other long term (current) drug therapy; E55.9 Vitamin D deficiency, unspecified; N39.46 Mixed incontinence; I10 Essential (primary) hypertension ==

== ENCOUNTER 2020-10-05 09:21 | Outpatient (CLI) | payer MEDICARE, OTHER | END 2020-10-05 23:59 | disposition home or self-care (01) | LOC: MSC 09:21 | PROVIDERS: ATTEND Internal Medicine | DX: I10 Essential (primary) hypertension (principal); N39.46 Mixed incontinence; J44.9 Chronic obstructive pulmonary disease, unspecified; N93.9 Abnormal uterine and vaginal bleeding, unspecified; J30.1 Allergic rhinitis due to pollen; M54.5 Low back pain; K59.00 Constipation, unspecified; G47.00 Insomnia, unspecified; F32.2 Major depressive disorder, single episode, severe without psychotic features; E55.9 Vitamin D deficiency, unspecified; G35 Multiple sclerosis; R53.83 Other fatigue; Z79.52 Long term (current) use of systemic steroids; Z79.899 Other long term (current) drug therapy ==

== ENCOUNTER 2020-11-03 09:40 | Outpatient (CLI) | payer MEDICARE, OTHER | END 2020-11-03 23:59 | disposition home or self-care (01) | LOC: WOU 09:40 | PROVIDERS: ATTEND Podiatrist Foot & Ankle Surgery | DX: S92.354D Nondisplaced fracture of fifth metatarsal bone, right foot, subsequent encounter for fracture with routine healing (principal); X58.XXXD Exposure to other specified factors, subsequent encounter; G35 Multiple sclerosis; R26.2 Difficulty in walking, not elsewhere classified; I10 Essential (primary) hypertension; J44.9 Chronic obstructive pulmonary disease, unspecified; Z79.52 Long term (current) use of systemic steroids | CPT/HCPCS: 73630; G0463 ==

== ENCOUNTER 2020-11-17 09:30 | Outpatient (CLI) | payer MEDICARE, OTHER | END 2020-11-17 23:59 | disposition home or self-care (01) | LOC: WOU 09:30 | PROVIDERS: ATTEND Podiatrist Foot & Ankle Surgery | DX: S92.354D Nondisplaced fracture of fifth metatarsal bone, right foot, subsequent encounter for fracture with routine healing (principal); X58.XXXD Exposure to other specified factors, subsequent encounter; G35 Multiple sclerosis; R26.2 Difficulty in walking, not elsewhere classified; J44.9 Chronic obstructive pulmonary disease, unspecified | CPT/HCPCS: 73630; G0463 ==

== ENCOUNTER 2020-11-29 08:07 | Outpatient (CLI) | payer MEDICARE, OTHER | END 2020-11-29 23:59 | disposition home or self-care (01) | LOC: RAD 08:07 | PROVIDERS: ATTEND Podiatrist Foot & Ankle Surgery | DX: S92.351D Displaced fracture of fifth metatarsal bone, right foot, subsequent encounter for fracture with routine healing (principal); X58.XXXD Exposure to other specified factors, subsequent encounter | CPT/HCPCS: 73630-TC ==

== ENCOUNTER 2020-12-01 10:00 | Outpatient (CLI) | payer MEDICARE, OTHER | END 2020-12-01 23:59 | disposition home or self-care (01) | LOC: WOU 10:00 | PROVIDERS: ATTEND Podiatrist Foot & Ankle Surgery | DX: S92.354D Nondisplaced fracture of fifth metatarsal bone, right foot, subsequent encounter for fracture with routine healing (principal); X58.XXXD Exposure to other specified factors, subsequent encounter; R26.2 Difficulty in walking, not elsewhere classified; G35 Multiple sclerosis; J44.9 Chronic obstructive pulmonary disease, unspecified | CPT/HCPCS: G0463 ==

== ENCOUNTER 2020-12-19 13:24 | Outpatient (CLI) | payer MEDICARE, OTHER | END 2020-12-19 23:59 | disposition home or self-care (01) | LOC: MSC 13:24 | PROVIDERS: ATTEND Internal Medicine | DX: K13.70 Unspecified lesions of oral mucosa (principal); J30.9 Allergic rhinitis, unspecified; N39.46 Mixed incontinence; R15.9 Full incontinence of feces; G35 Multiple sclerosis; R10.9 Unspecified abdominal pain; S92.301D Fracture of unspecified metatarsal bone(s), right foot, subsequent encounter for fracture with routine healing; J44.9 Chronic obstructive pulmonary disease, unspecified; R43.9 Unspecified disturbances of smell and taste; F32.2 Major depressive disorder, single episode, severe without psychotic features; R61 Generalized hyperhidrosis; R53.83 Other fatigue; I10 Essential (primary) hypertension; M25.569 Pain in unspecified knee; M54.5 Low back pain ==

== ENCOUNTER 2020-12-20 13:23 | Outpatient (CLI) | payer MEDICARE, OTHER | END 2020-12-20 23:59 | disposition home or self-care (01) | LOC: RAD 13:23 | PROVIDERS: ATTEND Podiatrist Foot & Ankle Surgery | DX: S92.351D Displaced fracture of fifth metatarsal bone, right foot, subsequent encounter for fracture with routine healing (principal); X58.XXXD Exposure to other specified factors, subsequent encounter | CPT/HCPCS: 73630-TC ==

== ENCOUNTER 2020-12-22 10:00 | Outpatient (CLI) | payer MEDICARE, OTHER | END 2020-12-22 23:59 | disposition home or self-care (01) | LOC: WOU 10:00 | PROVIDERS: ATTEND Podiatrist Foot & Ankle Surgery | DX: S92.354D Nondisplaced fracture of fifth metatarsal bone, right foot, subsequent encounter for fracture with routine healing (principal); X58.XXXD Exposure to other specified factors, subsequent encounter; R26.2 Difficulty in walking, not elsewhere classified; J44.9 Chronic obstructive pulmonary disease, unspecified; G35 Multiple sclerosis | CPT/HCPCS: G0463 ==

== ENCOUNTER 2021-01-05 08:57 | Outpatient (CLI) | payer MEDICARE, OTHER | END 2021-01-05 23:59 | disposition home or self-care (01) | LOC: RAD 08:57 | PROVIDERS: ATTEND Podiatrist Foot & Ankle Surgery | DX: S92.354A Nondisplaced fracture of fifth metatarsal bone, right foot, initial encounter for closed fracture (principal); X58.XXXA Exposure to other specified factors, initial encounter; Y93.89 Activity, other specified; Y92.89 Other specified places as the place of occurrence of the external cause; Y99.8 Other external cause status | CPT/HCPCS: 73630-TC ==

== ENCOUNTER 2021-01-05 09:30 | Outpatient (CLI) | payer MEDICARE, OTHER | END 2021-01-05 23:59 | disposition home or self-care (01) | LOC: WOU 09:30 | PROVIDERS: ATTEND Podiatrist Foot & Ankle Surgery | DX: S92.354D Nondisplaced fracture of fifth metatarsal bone, right foot, subsequent encounter for fracture with routine healing (principal); X58.XXXD Exposure to other specified factors, subsequent encounter; R26.2 Difficulty in walking, not elsewhere classified; G35 Multiple sclerosis; J44.9 Chronic obstructive pulmonary disease, unspecified | CPT/HCPCS: G0463 ==

== ENCOUNTER 2021-01-24 13:46 | Outpatient (CLI) | payer MEDICARE, OTHER | END 2021-01-24 23:59 | disposition home or self-care (01) | LOC: RAD 13:46 | PROVIDERS: ATTEND Podiatrist Foot & Ankle Surgery | DX: S92.354D Nondisplaced fracture of fifth metatarsal bone, right foot, subsequent encounter for fracture with routine healing (principal); M19.071 Primary osteoarthritis, right ankle and foot; X58.XXXD Exposure to other specified factors, subsequent encounter | CPT/HCPCS: 73630-TC ==

== ENCOUNTER 2021-01-26 11:14 | Outpatient (CLI) | payer MEDICARE, OTHER ==
[2021-01-26 12:55] LABS: BASOPHILS % (AUTO) 0.5 % (0.0-2.0); EOSINOPHILS % (AUTO) 7.1 % (0.0-6.0); HEMATOCRIT 33 % (33-45); HEMOGLOBIN 11.1 g/dL (11.5-14.8); LYMPHOCYTES # (AUTO) 1.3 K/uL (0.8-4.8); LYMPHOCYTES % (AUTO) 22.7 % (20.0-44.0); MEAN CORPUSCULAR HGB CONC 33 g/dl (31.0-36.0); MEAN CORPUSCULAR VOLUME 102 fL (82-100); MONOCYTES # (AUTO) 0.5 K/uL (0.1-1.30); MONOCYTES % (AUTO) 8.3 % (2.0-12.0); NEUTROPHILS # (AUTO) 3.6 K/uL (1.8-8.9); NEUTROPHILS % (AUTO) 61.4 % (43.0-81.0); PLATELET COUNT (AUTO) 305 K/uL (150-450); RED BLOOD CELL COUNT(AUTO) 3.26 MIL/uL (4.0-5.2); WHITE BLOOD COUNT (AUTO) 5.8 K/uL (4.3-11.0)
[2021-01-26 13:11] LABS: C-REACTIVE PROTEIN 0.4 mg/dL (0.0-0.9); FREE T4 (FREE THYROXINE) 0.64 ng/dL (0.76-1.46)
[2021-01-26 13:29] LABS: ALBUMIN 4.2 g/dL (3.4-5.0); BILIRUBIN,TOTAL 0.2 mg/dL (0.2-1.0); CALCIUM, SERUM 8.6 mg/dL (8.5-10.1); CREATININE 0.6 mg/dL (0.6-1.3); MAGNESIUM 2.4 mg/dL (1.8-2.4); PHOSPHORUS 3.4 mg/dL (2.5-4.9); POTASSIUM 3.6 mmol/L (3.5-5.1)
== END 2021-01-26 23:59 | disposition home or self-care (01) ==
LOC: MSC 11:14
PROVIDERS: ATTEND Internal Medicine
DX: M48.061 Spinal stenosis, lumbar region without neurogenic claudication (principal); M54.16 Radiculopathy, lumbar region; F41.9 Anxiety disorder, unspecified; K14.8 Other diseases of tongue; S92.911A Unspecified fracture of right toe(s), initial encounter for closed fracture; R32 Unspecified urinary incontinence; J44.9 Chronic obstructive pulmonary disease, unspecified; G35 Multiple sclerosis; G47.00 Insomnia, unspecified; J30.9 Allergic rhinitis, unspecified; N39.46 Mixed incontinence; F32.2 Major depressive disorder, single episode, severe without psychotic features; R61 Generalized hyperhidrosis; R53.83 Other fatigue; I10 Essential (primary) hypertension; M25.569 Pain in unspecified knee; R10.9 Unspecified abdominal pain; E55.9 Vitamin D deficiency, unspecified; Z79.899 Other long term (current) drug therapy
CPT/HCPCS: 36415; 80053; 80061; 82306; 82607; 82746; 83036; 83735; 84100; 84439; 85025; 85652; 86140; G0463

== ENCOUNTER → 2021-01-31 | Outpatient (CLI) | payer MEDICARE, OTHER | END | disposition home or self-care (01) | LOC: MSC 12:30 | PROVIDERS: ATTEND Anesthesiology | DX: M54.5 Low back pain (principal); M62.830 Muscle spasm of back; M40.299 Other kyphosis, site unspecified; G35 Multiple sclerosis; G82.20 Paraplegia, unspecified; M79.2 Neuralgia and neuritis, unspecified; R20.2 Paresthesia of skin; Z79.1 Long term (current) use of non-steroidal anti-inflammatories (NSAID); R32 Unspecified urinary incontinence; K59.09 Other constipation ==

== ENCOUNTER 2021-02-09 11:30 | Outpatient (CLI) | payer MEDICARE, OTHER | END 2021-02-09 23:59 | disposition home or self-care (01) | LOC: WOU 11:30 | PROVIDERS: ATTEND Podiatrist Foot & Ankle Surgery | DX: S92.354D Nondisplaced fracture of fifth metatarsal bone, right foot, subsequent encounter for fracture with routine healing (principal); X58.XXXD Exposure to other specified factors, subsequent encounter; R26.2 Difficulty in walking, not elsewhere classified; G35 Multiple sclerosis; J44.9 Chronic obstructive pulmonary disease, unspecified; I10 Essential (primary) hypertension; Z79.52 Long term (current) use of systemic steroids | CPT/HCPCS: G0463 ==

== ENCOUNTER 2021-02-25 10:57 | Emergency (ER) | payer MEDICARE, OTHER ==
[~2021-02-25] VITALS: Ht 152.4 cm; Wt 65.8 kg
--- NOTE | 2021-02-25 11:05 | NUR ---
pt came from home c/o genralized weeknes for 2 week . awake and alert respiration spont and easy moving all extramity no weeknees hx uti
--- NOTE | 2021-02-25 11:14 | NUR ---
AT BEDSIDE FOR EVAL.
[2021-02-25] MEDS ORDERED: IV NS 0.9% 1,000 ML BAG IV ONE (11:30)
--- NOTE | 2021-02-25 11:45 | NUR ---
blood drow by lab tach no complain
--- NOTE | 2021-02-25 12:04 | NUR ---
ADDENDUM: Intravenous End Time Documentation: Normal saline 1 liter (IV-WO) : start time: 1204 pm ; end time: 1304 pm : IV site: [facility] PIV # 20 Port # 1
[2021-02-25 12:06] LABS: MONOCYTES # (AUTO) 0.4 K/uL (0.1-1.30); WHITE BLOOD COUNT (AUTO) 5.5 K/uL (4.3-11.0)
[2021-02-25 12:08] LABS: BILIRUBIN,URINE Negative (NEGATIVE); COLOR,URINE YELLOW (YELLOW); LEUKOCYTE ESTERASE ,URINE Large (NEGATIVE); NITRITE, URINE Negative (NEGATIVE); PH,URINE 8.5 (5.0-8.0); PROTEIN,URINE Negative (NEGATIVE); UGLUCOSE Negative (NEGATIVE); UROBILINOGEN,URINE 0.2 EU/dL (0.2)
[2021-02-25 12:12] LABS: CARBON DIOXIDE 29 mmol/L (21-32); CHLORIDE 100 mmol/L (98-107); CREATININE 0.6 mg/dL (0.6-1.3); GLUCOSE 99 mg/dL (74-106); POTASSIUM 3.7 mmol/L (3.5-5.1); SODIUM SERUM 139 mmol/L (136-145); UREA NITROGEN, BLOOD 16 mg/dL (7-18)
[2021-02-25 12:15] LABS: BASOPHILS % (AUTO) 0.6 % (0.0-2.0); EOSINOPHILS % (AUTO) 2.7 % (0.0-6.0); HEMATOCRIT 40 % (33-45); LYMPHOCYTES # (AUTO) 1.8 K/uL (0.8-4.8); LYMPHOCYTES % (AUTO) 33.5 % (20.0-44.0); MEAN CORPUSCULAR HGB CONC 33 g/dl (31.0-36.0); MEAN CORPUSCULAR VOLUME 103 fL (82-100); NEUTROPHILS # (AUTO) 3.1 K/uL (1.8-8.9); NEUTROPHILS % (AUTO) 56.2 % (43.0-81.0); PLATELET COUNT (AUTO) 414 K/uL (150-450); RED BLOOD CELL COUNT(AUTO) 3.85 MIL/uL (4.0-5.2)
[2021-02-25 12:29] LABS: ALANINE AMINOTRANSFERASE 51 U/L (12-78); ALBUMIN 4.6 g/dL (3.4-5.0); ALCOHOL, BLOOD < 3 mg/dL (0-0); ALKALINE PHOSPHATASE 67 U/L (46-116); ASPARTATE AMINOTRANSFERASE 38 U/L (15-37); BILIRUBIN,DIRECT 0.1 mg/dL (0.0-0.2); BILIRUBIN,TOTAL 0.4 mg/dL (0.2-1.0); TOTAL PROTEIN, SERUM 8.9 g/dL (6.4-8.2)
[2021-02-25 12:30] LABS: ACETAMINOPHEN 0 ug/ml (10-30)
--- NOTE | 2021-02-25 12:31 | NUR ---
ivf ns infused and patent no complain
[2021-02-25 12:43] LABS: BACTERIA,URINE Moderate /HPF (None Seen); RBC,URINE 0-2 /HPF (0-2); WBC,URINE 21-50 /HPF (0-3)
[2021-02-25 12:44] LABS: SQUAMOUS EPITHELIAL CELL,UR Moderate /HPF (None Seen); URINE AMORPHOUS PHOSPHATES Moderate /HPF (None Seen)
[2021-02-25] MEDS ORDERED: CEPH500C2 PO (13:29)
[2021-02-25 13:57] LABS: SERUM AMMONIA 19 umol/L (11-32)
[2021-02-25 14:24] VITALS: BP 165/85
== END 2021-02-25 14:26 | disposition home or self-care (01) ==
LOC: ER 11:07
DX: N39.0 Urinary tract infection, site not specified (principal); R53.1 Weakness; G35 Multiple sclerosis; Z88.1 Allergy status to other antibiotic agents; Z79.899 Other long term (current) drug therapy
CPT/HCPCS: 36415; 70450; 71045; 80048; 80076; 80143; 80307; 80320; 81001; 82140; 83605; 84443; 84484; 84703; 85025; 85730; 87086; 96360; 99285; J7030; G0480

== ENCOUNTER 2021-03-16 10:57 | Outpatient (CLI) | payer MEDICARE, OTHER ==
[~2021-03-16 10:57] MED LIST changes: +CEPH500C2 PO
[2021-03-16 12:33] LABS: ALANINE AMINOTRANSFERASE 29 U/L (12-78); ALBUMIN 4.3 g/dL (3.4-5.0); ALKALINE PHOSPHATASE 58 U/L (46-116); ASPARTATE AMINOTRANSFERASE 25 U/L (15-37); BILIRUBIN,TOTAL 0.3 mg/dL (0.2-1.0); CARBON DIOXIDE 33 mmol/L (21-32); CHLORIDE 101 mmol/L (98-107); CREATININE 0.6 mg/dL (0.6-1.3); GLUCOSE 91 mg/dL (74-106); POTASSIUM 3.9 mmol/L (3.5-5.1); SODIUM SERUM 139 mmol/L (136-145); TOTAL PROTEIN, SERUM 8.3 g/dL (6.4-8.2); UREA NITROGEN, BLOOD 11 mg/dL (7-18)
[2021-03-16 12:35] LABS: C-REACTIVE PROTEIN < 0.2 mg/dL (0.0-0.9); FREE T4 (FREE THYROXINE) 0.77 ng/dL (0.76-1.46)
== END 2021-03-16 23:59 | disposition home or self-care (01) ==
LOC: MSC 10:57
PROVIDERS: ATTEND Internal Medicine
DX: M48.061 Spinal stenosis, lumbar region without neurogenic claudication (principal); M54.16 Radiculopathy, lumbar region; F41.9 Anxiety disorder, unspecified; K59.00 Constipation, unspecified; K14.8 Other diseases of tongue; S92.911D Unspecified fracture of right toe(s), subsequent encounter for fracture with routine healing; J44.9 Chronic obstructive pulmonary disease, unspecified; G35 Multiple sclerosis; G47.00 Insomnia, unspecified; J30.9 Allergic rhinitis, unspecified; N39.46 Mixed incontinence; F32.2 Major depressive disorder, single episode, severe without psychotic features; R43.9 Unspecified disturbances of smell and taste; R61 Generalized hyperhidrosis; R53.83 Other fatigue; I10 Essential (primary) hypertension; M25.569 Pain in unspecified knee; R10.9 Unspecified abdominal pain; E55.9 Vitamin D deficiency, unspecified; Z79.52 Long term (current) use of systemic steroids; Z79.899 Other long term (current) drug therapy
CPT/HCPCS: 36415; 80053; 84439; 85652; 86140; G0463

== ENCOUNTER 2021-03-21 11:31 | Outpatient (CLI) | payer MEDICARE, OTHER | END 2021-03-21 23:59 | disposition home or self-care (01) | LOC: MSC 11:31 | PROVIDERS: ATTEND Anesthesiology | DX: M47.816 Spondylosis without myelopathy or radiculopathy, lumbar region (principal); M62.830 Muscle spasm of back; M40.299 Other kyphosis, site unspecified; M47.817 Spondylosis without myelopathy or radiculopathy, lumbosacral region; G35 Multiple sclerosis; G82.20 Paraplegia, unspecified; M79.2 Neuralgia and neuritis, unspecified; Z79.891 Long term (current) use of opiate analgesic; R32 Unspecified urinary incontinence; K59.09 Other constipation; F41.8 Other specified anxiety disorders ==

== ENCOUNTER 2021-03-27 07:09 | Outpatient (CLI) | payer MEDICARE, OTHER | END 2021-03-27 23:59 | disposition home or self-care (01) | LOC: LAB 07:09 | PROVIDERS: ATTEND Anesthesiology | DX: Z01.812 Encounter for preprocedural laboratory examination (principal); Z20.822 Contact with and (suspected) exposure to COVID-19 | CPT/HCPCS: C9803; U0003 ==

== ENCOUNTER 2021-03-30 07:08 | Day surgery (SDC) | payer MEDICARE, OTHER ==
[~2021-03-30] VITALS: Ht 152.4 cm; Wt 52.2 kg
--- NOTE | 2021-03-30 07:45 | NUR ---
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 VITAL SIGNS TAKEN AND RECORDED. IV ACCESS STARTED ON LEFT AC G#20, PATENT AND FLUSHES WELL. CONSENT FOR PROCEDURE SECURED. PRE OP CHECKLIST DONE. PATIENT WAS PICKED UP BY O.R REP AT 0810 AM/ LEFT UNIT IN STABLE CONDITION.
[2021-03-30 08:00] VITALS: BP 140/73
[2021-03-30 08:22] LABS: BASOPHILS % (AUTO) 0.3 % (0.0-2.0); EOSINOPHILS % (AUTO) 8.6 % (0.0-6.0); HEMATOCRIT 36 % (33-45); LYMPHOCYTES # (AUTO) 1.5 K/uL (0.8-4.8); LYMPHOCYTES % (AUTO) 26.5 % (20.0-44.0); MEAN CORPUSCULAR HGB CONC 33 g/dl (31.0-36.0); MEAN CORPUSCULAR VOLUME 103 fL (82-100); MONOCYTES # (AUTO) 0.4 K/uL (0.1-1.30); MONOCYTES % (AUTO) 6.1 % (2.0-12.0); NEUTROPHILS # (AUTO) 3.4 K/uL (1.8-8.9); NEUTROPHILS % (AUTO) 58.5 % (43.0-81.0); PLATELET COUNT (AUTO) 349 K/uL (150-450); RED BLOOD CELL COUNT(AUTO) 3.49 MIL/uL (4.0-5.2); WHITE BLOOD COUNT (AUTO) 5.8 K/uL (4.3-11.0)
[2021-03-30 08:58] LABS: CALCIUM, SERUM 8.6 mg/dL (8.5-10.1); CREATININE 0.6 mg/dL (0.6-1.3); POTASSIUM 3.9 mmol/L (3.5-5.1)
[2021-03-30] MEDS ORDERED: IOHEXOL 240MG/ML 50 ML IV ONE (09:28)
[2021-03-30] MEDS ORDERED: LIDOCAINE HCL/MPF 1% 30 ML VIAL IJ ONE (09:28)
[2021-03-30] MEDS ORDERED: BUPIVACAINE 0.25% 75 MG/30 ML VIAL ONE (09:28)
[2021-03-30] MEDS ORDERED: methylPREDNISolone ACETATE 80 MG/ML VIAL ONE (09:28)
[2021-03-30 11:15] VITALS: BP 130/71
--- NOTE | 2021-03-30 12:00 | NUR ---
[employer]ILER[employer] MECH[employer]IC NOTES DISCHARGED PATIENT IN STABLE CONDITION. VITAL SIGNS WITHIN NORMAL LIMITS. IV ACCESS REMOVED, COVERED WITH GAUZE, NO BLEEDING NOTED. NO COMPLAINTS OF PAIN. DISCHARGE INSTRUCTIONS DISCUSSED WITH PATIENT, PATIENT VERBALIZED UNDERSTANDING. BELONGINGS ACCOUNTED AND SIGNED FOR. ARMBAND REMOVED. WHEELED PATIENT TO LOBBY. LEFT UNIT IN STABLE CONDITION. MD AND CHARGE NURSE AWARE OF DISCHARGE.
== END 2021-03-30 16:00 | disposition home or self-care (01) ==
LOC: DS 07:08 → MED 07:09 → UNDOADMIN 07:09 → UNDODISIN 11:45 → DS 16:00
PROVIDERS: ATTEND Anesthesiology
DX: M47.817 Spondylosis without myelopathy or radiculopathy, lumbosacral region (principal); M54.50 Low back pain, unspecified; J45.909 Unspecified asthma, uncomplicated; Z79.899 Other long term (current) drug therapy
CPT/HCPCS: 36415; 64493; 64494; 64495; 71045; 72100; 80048; 85025; 85610; 85730; 86850; 93005 ×2; A6402; J1040; J2704; J3490 ×3; J7030; Q9966; G0378

== ENCOUNTER 2021-04-21 11:24 | Outpatient (CLI) | payer MEDICARE, OTHER | END 2021-04-21 23:59 | disposition home or self-care (01) | LOC: RAD 11:24 | PROVIDERS: ATTEND Podiatrist Foot & Ankle Surgery | DX: S92.351A Displaced fracture of fifth metatarsal bone, right foot, initial encounter for closed fracture (principal); X58.XXXA Exposure to other specified factors, initial encounter; Y93.89 Activity, other specified; Y92.89 Other specified places as the place of occurrence of the external cause; Y99.8 Other external cause status | CPT/HCPCS: 73630-TC ==

== ENCOUNTER 2021-05-08 10:43 | Outpatient (CLI) | payer MEDICARE, OTHER | END 2021-05-08 23:59 | disposition home or self-care (01) | LOC: WOU 10:43 | PROVIDERS: ATTEND Podiatrist Foot & Ankle Surgery | DX: Z09 Encounter for follow-up examination after completed treatment for conditions other than malignant neoplasm (principal); Z87.81 Personal history of (healed) traumatic fracture; G35 Multiple sclerosis; J44.9 Chronic obstructive pulmonary disease, unspecified | CPT/HCPCS: G0463 ==

== ENCOUNTER 2021-05-16 10:56 | Outpatient (CLI) | payer MEDICARE, OTHER | END 2021-05-16 23:59 | disposition home or self-care (01) | LOC: MSC 10:56 | PROVIDERS: ATTEND Anesthesiology | DX: M47.817 Spondylosis without myelopathy or radiculopathy, lumbosacral region (principal); M47.816 Spondylosis without myelopathy or radiculopathy, lumbar region; M62.830 Muscle spasm of back; M40.299 Other kyphosis, site unspecified; G35 Multiple sclerosis; G82.20 Paraplegia, unspecified; M79.2 Neuralgia and neuritis, unspecified; Z79.891 Long term (current) use of opiate analgesic; Z79.899 Other long term (current) drug therapy ==

== ENCOUNTER 2021-07-15 07:45 | Emergency (ER) | payer OTHER ==
[~2021-07-15] VITALS: Ht 152.4 cm; Wt 49.9 kg
[2021-07-15 07:58] VITALS: BP 158/77
--- NOTE | 2021-07-15 08:11 | NUR ---
SEEN AND EXAMINED BY .
[2021-07-15 08:35] LABS: BILIRUBIN,URINE NEGATIVE (NEGATIVE); COLOR,URINE YELLOW (YELLOW); LEUKOCYTE ESTERASE ,URINE MODERATE (NEGATIVE); NITRITE, URINE NEGATIVE (NEGATIVE); PROTEIN,URINE NEGATIVE (NEGATIVE); UGLUCOSE NEGATIVE (NEGATIVE); UROBILINOGEN,URINE 0.2 EU/dL (0.2)
[2021-07-15 08:45] LABS: BACTERIA,URINE Rare /HPF (None Seen); RBC,URINE NONE SEEN /HPF (0-2); SQUAMOUS EPITHELIAL CELL,UR Few /HPF (None Seen); WBC,URINE 21-50 /HPF (0-3)
[2021-07-15] MEDS ORDERED: SULF1TAB48 PO (09:09)
[2021-07-15] MEDS ORDERED: DIPH50CA4 PO (09:09)
--- NOTE | 2021-07-15 09:12 | NUR ---
Patient discharged to home in stable condition. Written and verbal after care instructions given. Patient verbalizes understanding of instruction.
== END 2021-07-15 09:13 | disposition home or self-care (01) ==
LOC: ER 07:46
DX: S61.412A Laceration without foreign body of left hand, initial encounter (principal); N39.0 Urinary tract infection, site not specified; J20.9 Acute bronchitis, unspecified; G35 Multiple sclerosis; Z88.1 Allergy status to other antibiotic agents; Z79.51 Long term (current) use of inhaled steroids; Z79.899 Other long term (current) drug therapy; X58.XXXA Exposure to other specified factors, initial encounter; Y93.89 Activity, other specified; Y92.89 Other specified places as the place of occurrence of the external cause; Y99.8 Other external cause status
CPT/HCPCS: 81001; 87086-TC

== ENCOUNTER 2021-07-18 21:50 | Emergency (ER) | payer OTHER ==
[~2021-07-18] VITALS: Ht 152.4 cm; Wt 49.4 kg
[~2021-07-18 21:50] MED LIST changes: +DIPH50CA4 PO; +SULF1TAB48 PO
--- NOTE | 2021-07-18 22:18 | NUR ---
BIBS FROM HOME TO ER BED 3. AAOX4. NOT IN RESP DISTRESS. AMBULATORY. CAME IN FOR FEVER THAT HAS BEEN GOING ON FOR THE PAST 7 DAYS. PER PT, SHE NOTES HER TEMP AT 98s. SHE TAKES TYLENOL WHENVEVER SHE FEELS FEVERISH. TEMP AT TRIAGE NOTED @ 97.6
[2021-07-18] MEDS ORDERED: LORAZEPAM 0.5 MG TABLET ONE (22:30)
[2021-07-18] MEDS: LORAZEPAM 0.5 MG TABLET PO ONE (22:32)
[2021-07-18 22:45] LABS: BASOPHILS % (AUTO) 0.6 % (0.0-2.0); HEMATOCRIT 40 % (33-45); HEMOGLOBIN 13.4 g/dL (11.5-14.8); LYMPHOCYTES # (AUTO) 2.6 K/uL (0.8-4.8); LYMPHOCYTES % (AUTO) 43.5 % (20.0-44.0); MEAN CORPUSCULAR HGB CONC 33 g/dl (31.0-36.0); MEAN CORPUSCULAR VOLUME 102 fL (82-100); MONOCYTES # (AUTO) 0.5 K/uL (0.1-1.30); MONOCYTES % (AUTO) 8.1 % (2.0-12.0); NEUTROPHILS # (AUTO) 2.3 K/uL (1.8-8.9); NEUTROPHILS % (AUTO) 39.8 % (43.0-81.0); PLATELET COUNT (AUTO) 366 K/uL (150-450); RED BLOOD CELL COUNT(AUTO) 3.93 MIL/uL (4.0-5.2); WHITE BLOOD COUNT (AUTO) 5.9 K/uL (4.3-11.0)
[2021-07-18 22:56] VITALS: BP 141/70
[2021-07-18 23:05] LABS: CALCIUM, SERUM 9.4 mg/dL (8.5-10.1); CREATININE 0.9 mg/dL (0.6-1.3); POTASSIUM 4.7 mmol/L (3.5-5.1)
[2021-07-18 23:15] LABS: ALBUMIN 4.3 g/dL (3.4-5.0); BILIRUBIN,TOTAL 0.2 mg/dL (0.2-1.0); TOTAL PROTEIN, SERUM 8.4 g/dL (6.4-8.2)
[2021-07-18] MEDS ORDERED: ALPR0.25 PO ×2 (23:47→23:48)
[2021-07-18] MEDS ORDERED: MELA3TAB41 PO (23:47)
--- NOTE | 2021-07-18 23:53 | NUR ---
Patient discharged to home in stable condition. Written and verbal after care instructions given. Patient verbalizes understanding of instruction. Pt ambulatory with a steady gait
== END 2021-07-19 | disposition home or self-care (01) ==
LOC: ER 21:53
DX: R50.9 Fever, unspecified (principal); F43.9 Reaction to severe stress, unspecified; F41.1 Generalized anxiety disorder; G35 Multiple sclerosis; Z88.1 Allergy status to other antibiotic agents; Z79.818 Long term (current) use of other agents affecting estrogen receptors and estrogen levels; Z79.51 Long term (current) use of inhaled steroids; Z79.899 Other long term (current) drug therapy; Z60.2 Problems related to living alone
CPT/HCPCS: 36415; 80053-TC; 85025-TC

== ENCOUNTER 2021-07-22 10:47 | Emergency (ER) | payer OTHER ==
[~2021-07-22] VITALS: Ht 152.4 cm; Wt 49.9 kg
[~2021-07-22 10:47] MED LIST changes: +ALPR0.25 PO; +MELA3TAB41 PO
--- NOTE | 2021-07-22 10:47 | NUR ---
PT BIB SELF C/O COUGH X 2 WEEKS AND SOB. PT IS AAOX4, NOT IN RESPIRATORY DISTRESS, V/S STABLE, KEPT RESTED AND COMFORTABLE. WILL CONTINUE TO MONITOR.
--- NOTE | 2021-07-22 10:58 | NUR ---
AT BEDSIDE FOR EVAL.
--- NOTE | 2021-07-22 11:00 | NUR ---
BIB SELF C/O COUGH X 2 WEEKS. IN ROOM AIR AND OXYGEN SATURATION IN ROOM AIR IS AT 99%. WILL CONTINUE TO MONITOR THE PATIENT.
[2021-07-22] MEDS ORDERED: predniSONE 20 MG TABLET ONE (11:07)
[2021-07-22] MEDS ORDERED: ALBUTEROL FS 2.5 MG/3 ML VIAL.NEB ONE (11:12)
[2021-07-22] MEDS ORDERED: IPRATROPIUM NEB FS 0.5 MG/2.5 ML AMPUL.NEB ONE (11:12)
[2021-07-22] MEDS ORDERED: predniSONE 20 MG TABLET PO ONE (11:30)
[2021-07-22] MEDS ORDERED: ALBUTEROL FS 2.5 MG/3 ML VIAL.NEB CONTNEB ONE (11:30)
[2021-07-22] MEDS ORDERED: IPRATROPIUM NEB FS 0.5 MG/2.5 ML AMPUL.NEB NEB ONE (11:30)
[2021-07-22] MEDS ORDERED: PRED20TA PO (12:59)
[2021-07-22] MEDS ORDERED: ALBU18HF2 INH (12:59)
[2021-07-22] MEDS ORDERED: FLUT1DIS3 INH (13:13)
[2021-07-22 13:29] VITALS: BP 127/84
--- NOTE | 2021-07-22 13:29 | NUR ---
Patient discharged to home in stable condition. Written and verbal after care instructions given. Patient verbalizes understanding of instruction.
== END 2021-07-22 13:30 | disposition home or self-care (01) ==
LOC: ER 10:48
DX: J45.901 Unspecified asthma with (acute) exacerbation (principal); G35 Multiple sclerosis; Z88.1 Allergy status to other antibiotic agents; Z79.51 Long term (current) use of inhaled steroids; Z79.818 Long term (current) use of other agents affecting estrogen receptors and estrogen levels; Z79.899 Other long term (current) drug therapy; Z60.2 Problems related to living alone
CPT/HCPCS: 71045; 94640; 94799; 99285; J7512